=== PATIENT | female | born 1955 | race American Indian/Alaskan Native ===

== ENCOUNTER 2016-06-11 16:07 | Outpatient (CLI) | payer MEDICARE, OTHER ==
--- NOTE | 2016-06-13 10:09 | Magnetic Resonance Report ---
MR LOWER EXTREMITY JOINT LEFT WITHOUT CONTRAST: HISTORY: Left knee pain. TECHNIQUE: Multiple T1 and T2-weighted images with and without fat suppression. No contrast. COMPARISON: Left knee films dated 04/27/16. FINDINGS: There is a moderate joint effusion extending to the suprapatellar bursa. A small popliteal cyst measuring 1 x 1 x 2 cm is noted. There is fluid tracking the posterior muscular planes, this probably represents a ruptured popliteal cyst. High-grade tear or complete disruption of the medial patellofemoral ligament is suspected. This is best demonstrated on axial proton density fat sat image 19. There is moderate subcutaneous edema medial to the distal femur as well as fluid tracking superiorly in the medial quadriceps muscle. I cannot confidently identify the medial retinaculum. Retinacular injury could also be present. The lateral patellofemoral ligament is intact. There is a type III Wiberg patellofemoral relationship. The ACL, PCL, MCL, LCL complex and extensor complex are intact. The medial and lateral menisci are normal. No meniscal tear is appreciated. There is minimal subchondral bone marrow edema in the medial patella near the insertion site of the medial patellofemoral ligament. Otherwise, the bone marrow signal throughout the left knee is within normal limits. Mild cartilage thinning is identified in all 3 compartments of the knee. No chondral defect or free body is detected. IMPRESSION: Tear of the medial patellofemoral ligament is suspected, as outlined above. There may be involvement of the medial retinaculum as well. Joint effusion and popliteal cyst. There may be rupture of the popliteal cyst. Mild osteoarthritic changes.
--- NOTE | 2016-06-14 09:01 | Magnetic Resonance Report ---
MR LOWER EXTREMITY JOINT LEFT WITHOUT CONTRAST: HISTORY: Left ankle pain. TECHNIQUE: Multisequence, multiplanar MRI. FINDINGS: A marker is placed on the anterolateral surface of the ankle. There is mild nonspecific subcutaneous edema and swelling in this area. No evidence for abscess or mass. The bone marrow signal throughout the visualized ankle and foot are within normal limits. No fracture or bone lesion. I cannot confidently identify the anterior talofibular ligament. This could represent rupture. There is a joint effusion which extends into the anterolateral recess. The posterior talofibular ligament is intact. The calcaneofibular ligament is intact. The deltoid ligament is intact. The anterior and posterior tibiofibular ligaments are intact. No syndesmotic injury is appreciated. The Achilles tendon, medial tendons, lateral tendons and anterior tendons are normal size and signal. No tenosynovitis or rupture. The plantar fascia is intact. Small plantar spur is noted. IMPRESSION: Probable rupture of the anterior talofibular ligament. Please correlate with the patient's clinical presentation and exam. Joint effusion. Soft tissue swelling.
== END 2016-06-11 16:08 | disposition home or self-care (01) ==
LOC: MRI 16:07
PROVIDERS: ATTEND Family Medicine Adult Medicine
DX: M25.572 Pain in left ankle and joints of left foot (principal); M25.562 Pain in left knee; R93.8 Abnormal findings on diagnostic imaging of other specified body structures
CPT/HCPCS: 73721

== ENCOUNTER 2017-08-26 10:42 | Outpatient (CLI) | payer MEDICARE, OTHER ==
--- NOTE | 2017-08-26 14:51 | Ultrasound Report ---
ULTRASOUND RENAL BILATERAL HISTORY: Cyst of the kidney, acquired. TECHNIQUE: transabdominal ultrasound with color Doppler interrogation. FINDINGS: The right kidney measures 9.6 x 4.4 x 4.2cm. Right renal cortex: 1.6cm. The left kidney measures 11.2 x 4.2 x 5.2cm. Left renal cortex: 1.4cm. Scans of the kidneys show normal renal contours. There is normal central calyceal clustering and good preservation of the cortical thickness. There is no evidence of mass or hydronephrosis. There are 2 simple cysts near the midpole of the right kidney measuring 1.2 cm and 1.4 cm. No left renal cysts identified. The views of the bladder and the region of the ureters appear normal. IMPRESSION: 2 simple cysts in the right kidney as described, Bosniak class I. Otherwise unremarkable exam.
== END 2017-08-26 10:43 | disposition home or self-care (01) ==
LOC: US 10:42
PROVIDERS: ATTEND Family Medicine Adult Medicine
DX: N28.1 Cyst of kidney, acquired (principal)
CPT/HCPCS: 76770

== ENCOUNTER 2018-09-23 09:42 | Outpatient (CLI) | payer OTHER ==
--- NOTE | 2018-09-23 15:14 | Mammography Report ---
BILATERAL DIGITAL SCREENING MAMMOGRAM with CAD: 09/23/18 CLINICAL: Routine screening. COMPARISON:None available. However, a prior mammogram was apparently done at [facility]. FINDINGS: The breasts are heterogeneously dense, which may obscure small masses. A right asymmetry on the MLO view requires comparison with a prior mammogram or additional imaging.No architectural distortion or suspicious calcifications.The left breast is negative. IMPRESSION: Right asymmetry requiring further evaluation. BI-RADS CATEGORY: 0 -- Additional Evaluation Required RECOMMENDATION: Comparison with a previous mammogram. We will attempt to obtain a prior mammogram for comparison. If we do not obtain a prior mammogram within 30 days, a revised report will be issued recommending a recall for additional imaging. Please be advised that the patient should not schedule an appointment for return until adequate time (at least 2 weeks) has passed for us to obtain the prior mammogram. COMMENT: 1. Dense breast tissue, i.e., adenosis, fibrocystic changes, etc., may obscure an underlying neoplasm. 2. Approximately 10% of cancers are not detected with mammography. 3. A negative mammography report should not delay biopsy if a clinically suspicious mass is present. COMMENT: Patient follow-up letters are generated via our [employer] application.
== END 2018-09-23 09:43 | disposition home or self-care (01) ==
LOC: MAMMO 09:42
PROVIDERS: ATTEND Internal Medicine
DX: Z12.31 Encounter for screening mammogram for malignant neoplasm of breast (principal)
CPT/HCPCS: 77067

== ENCOUNTER 2021-03-09 10:43 | Outpatient (CLI) | payer OTHER ==
--- NOTE | 2021-03-09 18:15 | Mammography Report ---
DIGITAL SCREENING MAMMOGRAM WITH CAD, 03/09/2021 CLINICAL INFORMATION / INDICATION: Routine screening mammography. SCREENING MAMMOGRAM TECHNIQUE: Digital bilateral 2D mammography was obtained in the craniocaudal and mediolateral obliqu e projections. This examination was interpreted with the benefit of Computer-Aided Detection analysis . COMPARISON: 09/23/2018, 12/03/2019 FINDINGS: Breast Density: The breasts are heterogeneously dense, which may obscure small masses. No dominant mass, suspicious calcifications, or architectural distortion in either breast. IMPRESSION: No mammographic evidence of malignancy. Follow up recommendation: Routine yearly BI-RADS Category 1: Negative. A "normal" or negative report should not discourage follow up or biopsy of a clinically significant f inding. A written summary of these findings will be mailed to the patient. The patient will be entered into a mammography reporting system which will generate a reminder letter for the patient's next appointmen t at the appropriate interval. The [employer] recommends yearly mammograms starting at age 40 and continuing as l ortiz as a woman is in good health. Breast MRI is recommended for women with an approximate 20-25% or greater lifetime risk of breast cancer, including women with a strong family history of breast or ova hayde cancer or who have been treated for Hodgkin's disease. Signer Name: Kendall Parnell MD Signed: 03/09/2021 6:10 PM Workstation Name: [employer]
== END 2021-03-09 10:44 | disposition home or self-care (01) ==
LOC: MAMMO 10:43
DX: Z12.31 Encounter for screening mammogram for malignant neoplasm of breast (principal)
CPT/HCPCS: 77067